=== PATIENT | male | born 1960 ===

== ENCOUNTER 2018-01-25 14:17 | Outpatient (CLI) | payer OTHER ==
[~2018-01-25 14:17] MED LIST: CIPRO500 MG PO; FLAGYL500MG PO; INTESTINEX1 CA1 PO; PROTONIX40 MG PO; TRICOR48 MG PO; ZETIA10 MG PO
== END 2018-01-25 14:19 | disposition home or self-care (01) ==
LOC: LAB 14:17
DX: R97.20 Elevated prostate specific antigen [PSA] (principal)

== ENCOUNTER 2018-02-09 07:22 | Outpatient (CLI) | payer OTHER | END 2018-02-09 07:32 | disposition home or self-care (01) | LOC: SONOGRAMA 07:22 | DX: R97.20 Elevated prostate specific antigen [PSA] (principal) ==